=== PATIENT | male | born 1955 | race Caucasian/White ===

== ENCOUNTER 2020-12-20 17:30 | Emergency (ER) | payer MEDICARE, SELFPAY ==
--- NOTE | ~2020-12-20 | XR_ITS ---
EXAMINATION: XR CHEST CLINICAL INFORMATION: Hypoxia. COMPARISON: Chest 08/05/2018 TECHNIQUE: Frontal view of the chest was obtained. FINDINGS: The lungs are well-expanded with multiple bilateral lung nodules, new since last study. Heart size and pulmonary vascularity is normal. No gross bony abnormality seen. There is a right central port with its tip in at atriocaval junction. No gross bony abnormality seen. XR/XR chest 1V IMPRESSION: Multiple bilateral lung nodules, new since the previous study. New tunneled catheter with its tip at the atriocaval junction.
[2020-12-20 17:54] VITALS: BP 83/45; PULSE 74; RESP 18; O2SAT 100; BMI 20.5
--- NOTE | 2020-12-20 18:14 | ECG_ITS ---
Test Reason : WEAKNESS Blood Pressure : / mmHG Vent. Rate : 072 BPM Atrial Rate : 072 BPM P-R Int : 156 ms QRS Dur : 086 ms QT Int : 396 ms P-R-T Axes : 066 007 043 degrees QTc Int : 433 ms Normal sinus rhythm Low voltage QRS Nonspecific T wave abnormality Abnormal ECG When compared with ECG of 11-MAR-2019 12:11, Premature ventricular complexes are no longer Present Nonspecific T wave abnormality, worse in Inferior leads Nonspecific T wave abnormality now evident in Lateral leads QT has shortened Referred By: Nino Meredith Electronically Signed By:EARLENE CHAPPELL
--- NOTE | 2020-12-20 18:23 | ED.GENADULT ---
HPI - General Adult General Chief complaint: General Medical Stated complaint: low 02 sat, trach, combative Time Seen by Provider: 12/20/20 18:06 Source: EMS and other (physician practice market manager) Mode of arrival: EMS Limitations: altered mental status History of Present Illness HPI narrative: 65-year-old male who was sent to the emergency department for reported COVID testing in order to get into a intermediate facility The information came from our manager case who got a report from the patient's current hospice provider[facility]. Apparently, the patient is getting hospice care at home and is a DNR/DNI. The patient was requiring more care and his hospice providers reported that the patient had a bed at [facility]. Our manager case contacted this facility and they had no information on the patient. The patient has a tracheostomy and is nonverbal and I cannot obtain information from him. I did attempt to call the patient's sister, Sarina Rod and left a message on her voicemail. According to the ED nurse, paramedics reported that the patient was combative at home and hypoxic. Once he was placed on oxygen over his tracheostomy, he calmed down at the time of evaluation the patient does not appear to be in distress. Related Data Home Medications Medication Instructions Recorded Confirmed alprazolam 1 mg tablet 1 tab PO BEDTIME PRN 12/20/20 12/20/20 atorvastatin 80 mg tablet 1 tab PO DAILY 12/20/20 12/20/20 dronabinol 2.5 mg capsule 1 cap PO BID 12/20/20 12/20/20 levothyroxine 100 mcg tablet 1 tab PO QAM 12/20/20 12/20/20 mirtazapine 15 mg tablet 1 tab PO BEDTIME 12/20/20 12/20/20 morphine 30 mg tablet,extended 1 tab PO Q12H 12/20/20 12/20/20 release ondansetron HCl 8 mg tablet 1 tab PO TID PRN 12/20/20 12/20/20 oxycodone 10 mg tablet 1 tab PO Q8H PRN 12/20/20 12/20/20 pantoprazole 40 mg tablet,delayed 1 tab PO BEDTIME 12/20/20 12/20/20 release sertraline 50 mg tablet 1 tab PO DAILY 09/20/21 09/20/21 trazodone 50 mg tablet 1 tab PO BEDTIME PRN 12/20/20 12/20/20 Allergies Allergy/AdvReac Type Severity Reaction Status Date / Time No Known Allergies Allergy Mild NOT Unverified 12/18/19 15:09 APPLICABLE Review of Systems Review of Systems: Yes unobtainable due to endotracheal tube [facility] Past Medical History [facility] Narrative: Past medical history obtained from note sent in with the patient: Hypertension, high cholesterol, throat cancer with total laryngectomy 2007, hyperthyroidism, fracture right femur with traction, plates, screws, skin graft, removal plates and screws, partial amputation of the index finger, right eye cataracts not removed, liver cyst, shingles. Social history: Patient lives at home with his sister who is a retired nurse. Social History Social History Advance Directives: No Advance Directives Information Provided: No Physical Exam Vital Signs: Vital Signs: Last Vital Signs Pulse 75 12/20/20 20:09 Resp 16 12/20/20 20:09 BP 121/65 12/20/20 20:09 Pulse Ox 95 12/20/20 20:09 Body Mass Index 20.5 Const: Other: Chronically ill-appearing male, very thin, the patient has a tracheostomy with oxygen mask over the tracheostomy, patient is nonverbal but does nod his head yes and no. HENMT: Head: Yes normal to inspection, Yes normocephalic and Yes atraumatic Ears: external ears normal General nose exam: Normal external nose present Face and sinus: Yes normal facial exam Mouth: other (Very dry mucous membranes) Throat: Yes posterior oropharynx normal Eyes: General: appearance normal, both eyes and all related structures Neck: Other: Tracheostomy with oxygen over mass over site Chest: Chest palpation & inspection: normal inspection of the chest and normal palpation of entire chest wall Resp: Effort & Inspection: normal respiratory effort and able to speak in complete sentences Auscultation: clear to auscultation bilaterally Cardio: Rate: regular rate Rhythm: regular rhythm Heart sounds: S1 normal heart sound present, S2 normal heart sound present and no murmurs GI: Inspection: Yes normal to inspection Palpation (GI): Soft to palpation, nontender and no guarding Auscultation: normal bowel sounds : General: Yes no CVA tenderness Back/Spine/Pelvis: Back: no CVA tenderness Skin: General skin exam: no rashes or lesions noted Neuro: Other: Patient with right upper extremity weakness with contracture of the hand, moves all other extremities symmetrically Course Course Course Narrative: 65-year-old male with a history of hypertension, high cholesterol, throat cancer with total laryngectomy in 2007 hyperthyroidism who has been on hospice for approximately 3 days who was sent to the emergency department for reported COVID testing so that he can get into a intermediate facility hospice program. Our manager case however contacted the intermediate facility and they do not have any information on this patient. I attempted to contact the patient's sister to get more information but she is unavailable. Paramedics reported the patient was combative and hypoxic on initial presentation, once they gave him oxygen over his tracheostomy he became calm and less combative. At the time of evaluation the patient appears calm and does not appear to be in distress. The patient does have a MOLST form which states that he is a DNR, DNI, no transfer to the hospital, no intubation, no noninvasive ventilation, no dialysis, no artificial nutrition, no artificial hydration. At this time, it is unclear to me why the patient is actually here in the hospital therefore I will do a workup on this patient to include CBC, CMP, lipase, troponin, COVID-19, lactic acid. I will obtain a portable chest x-ray an EKG as well. The patient will be treated with normal saline IV x1 L. 2030: The patient's laboratory evaluation revealed anemia with an H&H of 9.5 and 32. This is chronic. Electrolytes were unremarkable. AST was elevated at 96. BNP is elevated at 352. Chest x-ray revealed multiple bilateral lung nodules which is concerning for possible metastatic disease. The patient's COVID-19 test was negative. I again attempted to contact the patient's sister, Arlni to discuss this position however I again got her voicemail and left a message to have a contact the emergency department. I will order the patient's outpatient medications and the patient will be kept in the emergency department until we can find an appropriate hospice bed for this patient. At this time, we will follow the patient is DNR, DNI as per his MOLST form except I will treat the patient with oxygen and IV fluids unless we get different information from the patient's sister. 2058:Physician observation started at 2058. Patient placed in physician observation because the patient needed case management for appropriate hospice placement. At the time observation was started the patient's vitals were stable, Neuro: Unchanged, CV RRR, Lungs clear. The patient's care was turned over to my colleague, Dr. Rivas. I did discuss the patient's situation with his sister, Sarina she wants the patient to be made comfort measures only. She does not want the patient to get his regular scheduled medications so these were all discontinued. The patient is on morphine extended release twice a day and oxycodone p.r.n.. Therefore, I ordered morphine 4 mg IV b.i.d. and 4 mg q.4 hours as needed for pain, shortness of breath or discomfort. Medical Decision Making Lab Data Result diagrams: 12/20/20 19:17 12/20/20 19:17 Labs: Lab Results 12/20/20 12/20/20 12/20/20 Range/Units 19:17 19:17 19:17 WBC 5.4 (4.8-10.8) X10*3/uL RBC 3.24 L (4.60-5.80) X10*6/uL Hgb 9.5 L (14.0-18.0) g/dl Hct 32.0 L (42-52) % MCV 98.8 H (80-98) fL MCH 29.3 (27.0-33.0) pg MCHC 29.7 L (31.0-36.0) g/dl RDW 21.5 H (11.0-16.0) % Plt Count 184 (160-400) X10*3/uL MPV 9.8 (9.4-12.4) fL Immature Gran % (Auto) 0.4 (0.0-0.4) % Neut % (Auto) 76.2 H (45-73) % Lymph % (Auto) 10.1 L (20-40) % [place] % (Auto) 9.0 (2-11) % Eos % (Auto) 3.7 (0-4) % Baso % (Auto) 0.6 (0-2) % Lymph # (Auto) 0.5 L (1.2-4.9) X10*3/uL [place] # (Auto) 0.5 (0.1-1.2) X10*3/uL Eos # (Auto) 0.2 (0.0-0.4) X10*3/uL Baso # (Auto) 0.0 (0.0-0.2) X10*3/uL Abs Immat Gran (auto) 0.02 (0.00-0.03) X10*3/uL Absolute Neuts (auto) 4.1 (2.0-8.3) X10*3/uL Absolute Nucleated RBC 0.000 (0.0-0.012) X10*3/uL Nucleated RBC % (auto) 0.0 (0.0-0.2) /100WBC Sodium 147 H (135-145) mmol/L Potassium 4.5 (3.3-5.1) mmol/L Chloride 111 H (96-108) mmol/L Carbon Dioxide 25 (22-29) mmol/L Anion Gap 16 (12-20) BUN 15 (9-16) mg/dL Creatinine 1.27 (0.5-1.4) mg/dL Estim Creat Clear Calc 52.4 Estimated GFR 57 Random Glucose 63 (60-115) mg/dL Lactic Acid (0.5-2.0) mmol/L Calcium 7.8 L (8.4-10.2) mg/dL Total Bilirubin 0.4 (0.0-1.0) mg/dL AST 96 H (5-37) U/L ALT 16 (0-40) U/L Alkaline Phosphatase 781 H (39-117) U/L Troponin I High Sens (<3.5-35.0) ng/L B-Natriuretic Peptide 332 H (<100) pg/mL Total Protein 4.8 L (6.5-8.0) g/dL Albumin 2.1 L (3.5-5.0) g/dL Lipase (8-78) U/L COVID-19 (NINO) (Negative) COVID-19 Clin Com 12/20/20 12/20/20 12/20/20 Range/Units 19:17 19:17 19:17 WBC (4.8-10.8) X10*3/uL RBC (4.60-5.80) X10*6/uL Hgb (14.0-18.0) g/dl Hct (42-52) % MCV (80-98) fL MCH (27.0-33.0) pg MCHC (31.0-36.0) g/dl RDW (11.0-16.0) % Plt Count (160-400) X10*3/uL MPV (9.4-12.4) fL Immature Gran % (Auto) (0.0-0.4) % Neut % (Auto) (45-73) % Lymph % (Auto) (20-40) % [place] % (Auto) (2-11) % Eos % (Auto) (0-4) % Baso % (Auto) (0-2) % Lymph # (Auto) (1.2-4.9) X10*3/uL [place] # (Auto) (0.1-1.2) X10*3/uL Eos # (Auto) (0.0-0.4) X10*3/uL Baso # (Auto) (0.0-0.2) X10*3/uL Abs Immat Gran (auto) (0.00-0.03) X10*3/uL Absolute Neuts (auto) (2.0-8.3) X10*3/uL Absolute Nucleated RBC (0.0-0.012) X10*3/uL Nucleated RBC % (auto) (0.0-0.2) /100WBC Sodium (135-145) mmol/L Potassium (3.3-5.1) mmol/L Chloride (96-108) mmol/L Carbon Dioxide (22-29) mmol/L Anion Gap (12-20) BUN (9-16) mg/dL Creatinine (0.5-1.4) mg/dL Estim Creat Clear Calc Estimated GFR Random Glucose (60-115) mg/dL Lactic Acid 0.7 (0.5-2.0) mmol/L Calcium (8.4-10.2) mg/dL Total Bilirubin (0.0-1.0) mg/dL AST (5-37) U/L ALT (0-40) U/L Alkaline Phosphatase (39-117) U/L Troponin I High Sens 28.9 (<3.5-35.0) ng/L B-Natriuretic Peptide (<100) pg/mL Total Protein (6.5-8.0) g/dL Albumin (3.5-5.0) g/dL Lipase 4 L (8-78) U/L COVID-19 (NINO) (Negative) COVID-19 Clin Com 12/20/20 Range/Units 19:18 WBC (4.8-10.8) X10*3/uL RBC (4.60-5.80) X10*6/uL Hgb (14.0-18.0) g/dl Hct (42-52) % MCV (80-98) fL MCH (27.0-33.0) pg MCHC (31.0-36.0) g/dl RDW (11.0-16.0) % Plt Count (160-400) X10*3/uL MPV (9.4-12.4) fL Immature Gran % (Auto) (0.0-0.4) % Neut % (Auto) (45-73) % Lymph % (Auto) (20-40) % [place] % (Auto) (2-11) % Eos % (Auto) (0-4) % Baso % (Auto) (0-2) % Lymph # (Auto) (1.2-4.9) X10*3/uL [place] # (Auto) (0.1-1.2) X10*3/uL Eos # (Auto) (0.0-0.4) X10*3/uL Baso # (Auto) (0.0-0.2) X10*3/uL Abs Immat Gran (auto) (0.00-0.03) X10*3/uL Absolute Neuts (auto) (2.0-8.3) X10*3/uL Absolute Nucleated RBC (0.0-0.012) X10*3/uL Nucleated RBC % (auto) (0.0-0.2) /100WBC Sodium (135-145) mmol/L Potassium (3.3-5.1) mmol/L Chloride (96-108) mmol/L Carbon Dioxide (22-29) mmol/L Anion Gap (12-20) BUN (9-16) mg/dL Creatinine (0.5-1.4) mg/dL Estim Creat Clear Calc Estimated GFR Random Glucose (60-115) mg/dL Lactic Acid (0.5-2.0) mmol/L Calcium (8.4-10.2) mg/dL Total Bilirubin (0.0-1.0) mg/dL AST (5-37) U/L ALT (0-40) U/L Alkaline Phosphatase (39-117) U/L Troponin I High Sens (<3.5-35.0) ng/L B-Natriuretic Peptide (<100) pg/mL Total Protein (6.5-8.0) g/dL Albumin (3.5-5.0) g/dL Lipase (8-78) U/L COVID-19 (NINO) Negative (Negative) COVID-19 Clin Com See Note Discharge Plan Discharge Clinical Impression: Laryngeal cancer, DNR (do not resuscitate), DNI (do not intubate) Prescriptions: No [facility] atorvastatin 80 mg tablet 1 tab PO DAILY RF: 0 trazodone 50 mg tablet 1 tab PO BEDTIME PRN (Reason: insomnia) RF: 0 alprazolam 1 mg tablet 1 tab PO BEDTIME PRN (Reason: Sleep) RF: 0 ondansetron HCl 8 mg tablet 1 tab PO TID PRN (Reason: nausea/vomiting) RF: 0 morphine 30 mg tablet extended release 1 tab PO Q12H RF: 0 dronabinol 2.5 mg capsule 1 cap PO BID RF: 0 levothyroxine 100 mcg tablet 1 tab PO QAM RF: 0 pantoprazole 40 mg tablet,delayed release (DR/EC) 1 tab PO BEDTIME RF: 0 mirtazapine 15 mg tablet 1 tab PO BEDTIME RF: 0 sertraline 50 mg tablet 1 tab PO DAILY RF: 0 oxycodone 10 mg tablet 1 tab PO Q8H PRN (Reason: Pain) RF: 0
--- NOTE | 2020-12-20 19:12 | PHA.MEDREC ---
Pharmacy Consult ? Medication Reconciliation Pharmacy has completed the medication reconciliation. Since patient is non verbal, history obtained from medication fill history and PDMP.
[2020-12-20] MEDS: 0.9 % Sodium Chloride 1,000 ML 999 ML IV (19:23)
[2020-12-20 19:24] VITALS: BP 81/44; PULSE 70; RESP 16; O2SAT 98
[2020-12-20 19:27] LABS: MANUAL DIFF FLAG NO
[2020-12-20 19:34] LABS: Lactic Acid 0.7 mmol/L (0.5-2.0)
[2020-12-20 19:44] LABS: Lipase 4 U/L (8-78)
[2020-12-20 19:47] LABS: Alanine Aminotransferase 16 U/L (0-40); Albumin Level 2.1 g/dL (3.5-5.0); Anion Gap 16 (12-20); Aspartate Amino Transferase 96 U/L (5-37); Bilirubin Total 0.4 mg/dL (0.0-1.0); Blood Urea Nitrogen 15 mg/dL (9-16); Calcium 7.8 mg/dL (8.4-10.2); Carbon Dioxide 25 mmol/L (22-29); Chloride 111 mmol/L (96-108); Creatinine Clr Calc Pharmacy 52.4; Estimated Glomerular Filt Rate 57; Glucose Random 63 mg/dL (60-115); Potassium 4.5 mmol/L (3.3-5.1); Sodium 147 mmol/L (135-145); Total Protein 4.8 g/dL (6.5-8.0)
[2020-12-20 19:48] LABS: B Type Natriuretic Peptide 332 pg/mL (<100)
[2020-12-20 19:48] LABS: COVID-19 Test Negative (Negative); IDNOW Serial# 08D9AD1C
[2020-12-20 19:49] LABS: Troponin-I High Sensitivity 28.9 ng/L (<3.5-35.0)
[2020-12-20 19:51] LABS: Basophils Percent Auto 0.6 % (0-2); Eosinophils Absolute Auto 0.2 X10*3/uL (0.0-0.4); Eosinophils Percent Auto 3.7 % (0-4); Hemoglobin 9.5 g/dl (14.0-18.0); Imm Gran Abs Auto 0.02 X10*3/uL (0.00-0.03); Imm Gran Pct Auto 0.4 % (0.0-0.4); Lymphocytes Absolute Auto 0.5 X10*3/uL (1.2-4.9); Lymphocytes Percent Auto 10.1 % (20-40); Mean Corpuscular HGB Conc 29.7 g/dl (31.0-36.0); Mean Corpuscular Hemoglobin 29.3 pg (27.0-33.0); Mean Corpuscular Volume 98.8 fL (80-98); Mean Platelet Volume 9.8 fL (9.4-12.4); Monocytes Absolute Auto 0.5 X10*3/uL (0.1-1.2); Neutrophils Absolute Auto 4.1 X10*3/uL (2.0-8.3); Neutrophils Percent Auto 76.2 % (45-73); Platelet Count 184 X10*3/uL (160-400); Red Blood Count 3.24 X10*6/uL (4.60-5.80); Red Cell Distribution Width 21.5 % (11.0-16.0); White Blood Count 5.4 X10*3/uL (4.8-10.8)
[2020-12-20 19:57] LABS: Alkaline Phosphatase 781 U/L (39-117)
[2020-12-20 20:09] VITALS: BP 121/65; PULSE 75; RESP 16; O2SAT 95
--- NOTE | 2020-12-20 20:13 | PC.NURSE ---
Addendum entered by Peter Meyers RN 12/20/20 20:27: Non-Rebreather not venti mask Original Note: pt initially satting 91% on 5L venti mask placed over trach stoma. pt does not appear in distress. respirations even and unlabored. this nurse asked pt if he felt short of breath and pt shook his head no . respiratory paged by this nurse to see pt and assist in making sure pt is has comfortable respiratory status. pt sat now up to 98% on 5L venti mask placed over stoma. aware
--- NOTE | 2020-12-20 20:28 | MHC.CM.ED ---
ANGELICA received a call from Coleen at [facility] ([phone]),- who stated that pt lives with his sister, a retried RN, who is no longer able to care for him. Pt has been in hospice [facility] since 12/17/20. Pt has a tracheostomy and does not use oxygen at home.Per Coleen, pt has a bed at [facility] and is coming to the ED for a Covid test. Pt was having difficulties with ambulance transport to the ED. Angelica questioned Coleen regarding if pt has a bed at [facility], and Coleen assured me that he did and would verify Inga, Rehabilitation Supervisor at [facility] ([phone]). ANGELICA received a call from Marva, liaison at [facility] ([phone]), who tells me that the patient does not have a bed. Stated that she told Inga that she would need clinicals and a completed contract with [facility], as they do not contract with [facility]. Per Marva, she told Inga at [facility] that this could take several days. Per Marva, she never received the requested clinicals or contract. As ANGELICA was speaking with Ynes, the pt arrived via ambulance. This CM updated Dr. Meredith regarding above. Health care proxy, MOLST, med list and short history arrived with the patient. Per medical records, HCP/sister Sarina Rod ([phone]), PCP is Dr. Eng. HCP and MOLST uploaded into [employer]. Pt is sound asleep and unable to wake. Pt appears comfortable and is not in any distress. Pt is non-verbal. Attempted to call HCP x2. MD called x2. Messages left to return call. MOLST DNR/DNI, No transfer to hospital, no IV, no artificial nutrition, no dialysis. HCP and Molst uploaded into [employer]. ANGELICA spoke with Inga from [facility] and told her that this pt did not have a bed. Inga apologized for the confusion and stated that [facility] could refer this pt to another hospice if that would help with placement. Inga states that HCP requested [facility] or [facility]. Per Inga, there are funds for [facility]. ANGELICA has been unable to verify any of this with HCP/sister, Sarina. Will continue to attempt to reach her. D/C plan is for patient to remain in the ED tonight, hopefully reach his sister soon, place referrals to [facility] and [facility]. CM will follow for d/c needs.
--- NOTE | 2020-12-20 21:52 | MHC.CM.ED ---
CM spoke with patient's sister/HCP Sarina Rod. Sarina is retired [employer] RN. She is unable to physically care for her brother anymore. Sarina is aware that [facility] had not offered a bed and that [facility] had told CM that we could look for another hospice agency to provide care for her brother if need be. Sarina is agreeable to referral to [facility] and to [facility]. 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 Agreeable to IV pain medications for comfort and oxygen. States her brother has gone down hill fast in past 5 days. Can no longer even pivot from bed to chair. Has stopped eating and essentially drinking. Has been unable to take most of his mediations. Sarina wants her brother comfortable. Very teary on telephone. Asked if she can visit. Informed that she can visit whenever she needs to, as he is PROTECTIVE SERVICES OFFICER. Sarina tells CM that if [facility] doesn't have a been, we can look elsewhere. Sarina has funds to pay for room and board for hospice in facility. CM to follow for d/c needs.
[2020-12-20 21:55] VITALS: BP 126/60; PULSE 81; RESP 20; TEMP 36.8; O2SAT 96
[2020-12-20 23:02] VITALS: RESP 16
[2020-12-20] MEDS: Morphine Sulfate 4 MG/ML CARTRIDGE IVPUSH (23:02)
[2020-12-20 23:42] VITALS: BP 97/52; PULSE 68; RESP 16; O2SAT 97
--- NOTE | 2020-12-20 23:53 | PC.NURSE ---
provider ordered NS as a KVO order. MAR is requiring infusion rate for this order. charge nurse is contacting nursing dormitory supervisor regarding policy for this order due to pt being MEAT TRIMMER and no fluids are to be given. per nurse dormitory supervisor KVO order is infused at 50ml/hr in order to keep line patent. charge nurse aware. aware.
[2020-12-20] MEDS: 0.9 % Sodium Chloride 1,000 ML 50 ML IV (23:56)
[2020-12-21] VITALS (7 sets, daily range): BP systolic 67–131; BP diastolic 45–79; PULSE 68–84; RESP 15–20; TEMP 36.8; O2SAT 94–100
--- NOTE | 2020-12-21 03:45 | PC.NURSE ---
BP 67/45 MD notified
--- NOTE | 2020-12-21 06:23 | PC.NURSE ---
pt sleeping comfortably in supine position. respirations even and unlabored. no signs of distress or pain noted. bed linens dry. pt given fresh warm blanket for comfort. call mccrary in reach.
--- NOTE | 2020-12-21 07:15 | PC.NURSE ---
Assumed care of patient. Pt was attempting to get up out of bed. Pt reassured and got back into bed. Sheets changed and pt positioned onto left side with pillows. Pt has continuos humidified oxygen via trach collar.
--- NOTE | 2020-12-21 08:43 | MHC.CM.ED ---
Received telephone call from patient's sister/HCP, Sarina. T/W explained [facility] is reviewing to see if they can offer a bed. Per Sarina, [facility] is first choice, but is willing to transfer patient to any facility that is close and able to care for her brother. Referral broadcasted in [employer] within 10 miles of Sarina's home to all facilities contracted with patient's insurance. Continue to monitor for d/c needs.
[2020-12-21] MEDS: Morphine Sulfate 4 MG/ML CARTRIDGE IVPUSH ×2 (09:14→21:17)
--- NOTE | 2020-12-21 09:53 | PC.NURSE ---
Pt noted to have urinated. Pt cleaned, changed and fresh linens placed on bed. Condom catheter is now in place. Pt requesting something to drink. Pt is drinking water, tolerating PO intake.
--- NOTE | 2020-12-21 13:19 | PC.NURSE ---
Pt has been repositioned throughout the day and is resting comfortably. Pt continues have the oxygen vian the trach mask, fluids at a kvo rate and is sipping water. Pt is still waiting on case managment placement.
--- NOTE | 2020-12-21 19:25 | PC.NURSE ---
Patient placed into a hospital bed for his comfort. Patient had alot of secretions from his trach and was suctioned per this marketing copywriter. There is a large thick secretion that I am unable to suction and respiratory called for assistance.
--- NOTE | 2020-12-21 19:46 | MHC.CM.ED ---
Pt moved to hospital bed. Pt appears comfortable. Sleeping off and on. No agitation or distress noted. CM spoke with HCP/sister Sarina Rod ([phone]) regarding bed offer for 12/22 from [facility]. Will need payment of 2 weeks up front, at 392.73/day for a total of 5498.22. Sarina is aware that [facility] is contracted with [facility] and [facility] are still reviewing. Sarina asked CM to let [address] [place] [address] that she is considering the offer and will make a decision in the am. Sarina is hoping to hear from [facility] or [facility] in the am. Referral not placed with [facility] pending actual bed acceptance by family. All facilities updated in [employer]. CM to follow for d/c needs
[2020-12-22] VITALS (7 sets, daily range): BP systolic 118–137; BP diastolic 61–68; PULSE 74–85; RESP 12–18; TEMP 35.8–36.9; O2SAT 97–100
[2020-12-22] MEDS: Morphine Sulfate 4 MG/ML CARTRIDGE IVPUSH ×3 (00:36→10:04)
--- NOTE | 2020-12-22 04:56 | PC.NURSE ---
pt agitated, repositioned. given prn morphine.
--- NOTE | 2020-12-22 08:03 | PC.NURSE ---
pt is alert, non verbal but is able to make needs known. pt refused breakfast but requested/given water. pt drank 60ml of water. hob up
--- NOTE | 2020-12-22 08:27 | MHC.CM.ED ---
Patient remains in ER. [facility] is not able to offer a bed. Reached out to [facility] to see if they have a bed to offer. Continue to monitor for d/c needs.
--- NOTE | 2020-12-22 09:28 | PC.NURSE ---
PT REMOVER HUMIDIFIER 02 FROM HI STOMA AND SAT UP IN BED STATING THAT HE IS GOING HOME. PT IS ADAMANT ABOUT LEAVING.
--- NOTE | 2020-12-22 09:35 | PC.NURSE ---
BED ALARM IS ON
[2020-12-22] MEDS: LORazepam 2 MG/ML VIAL 1 MG IVPUSH (10:04)
--- NOTE | 2020-12-22 10:10 | PC.NURSE ---
pt med x 1 with ativan 1mg ivp for increase anxiety.
--- NOTE | 2020-12-22 10:12 | PC.NURSE ---
pt suctioned earlier for scant amt of sputum.
--- NOTE | 2020-12-22 10:30 | MHC.CM.ED ---
Addendum entered by Vniita Flower 12/22/20 11:05: Charley from [facility] aware. Attempted to book transport with [facility]. They are unable to accommodate this patient. [facility] aware. Original Note: [facility] is not able to offer a bed. Spoke with patient's sister/HCP, Sarina. Sarina agreeable to transfer to [address] [place] [address] and referral to [facility]. Patient will leave ER at 2pm. [facility] BLS booked. Med nec with chart. Patient, sister Sarina, RN and Almita RAMÍREZ aware. Continue to monitor for d/c needs.
[2020-12-22] MEDS: Morphine Sulfate Oral Sol 10 MG/5 ML SOLUTION 5 MG PO (12:00)
== END 2020-12-22 14:16 | disposition skilled nursing facility (03) ==
PROVIDERS: Emergency Provider Emergency Medicine Emergency Medical Services
DX: C32.9 Malignant neoplasm of larynx, unspecified (principal); R06.02 Shortness of breath; Z66 Do not resuscitate; Z20.822 Contact with and (suspected) exposure to COVID-19; Z79.899 Other long term (current) drug therapy
CPT/HCPCS: 36415; 71045; 80053; 83605; 83690; 83880; 84484; 85025; 87635; 93005; 96361; 96374; 96375; 96376; 99285; J2060; J2270